=== PATIENT | female | born 1960 | race African-American/Black ===

== ENCOUNTER 2022-12-08 16:38 | Outpatient (REF) | payer OTHER, SELFPAY ==
[2022-12-15 19:04] LABS: Acetylcholine Recept. Blocking <15 (<15)
[2022-12-15 22:39] LABS: Acetylcholine Receptor Binding <0.30 nmol/L
[2022-12-18 17:44] LABS: Acetylcholine Recep Modulating 20
== END 2022-12-08 16:39 | disposition home or self-care (01) ==
LOC: HO.LAB 16:38
PROVIDERS: Visit Provider Psychiatry & Neurology Neurology
DX: H02.409 Unspecified ptosis of unspecified eyelid (principal)
CPT/HCPCS: 36415; 83519